=== PATIENT | male | born 1945 | race Caucasian/White ===

== ENCOUNTER 2019-01-25 11:06 | Inpatient (IN) ==
--- OUTSIDE RECORDS SUMMARY | 2019-01-25 11:09 | External Medical Summary | Continuity of Care Document ---
:1945 Author Name Ghassan Guerrero Address Unavailable Unavailable , Care Team Providers Name Role Phone Unavailable Unavailable Unavailable DOBERSTEIN Unavailable Unavailable Problems Active medical history not documented Allergies and Adverse Reactions Allergy history not documented Medications Medications not documented Procedures Procedures not documented Immunizations Immunizations not documented Plan of Treatment Planned Observations Planned Goals not documented Results No Known Results Results not documented
[2019-01-25] MEDS ORDERED: ALBUT/IPRATROP 3MG/0.5MG NEB 3 ML VIAL NEB ONE (11:21)
[2019-01-25] MEDS ORDERED: MAGNESIUM SULFATE / D5W 1 GM/100 ML BAG IV ONE (11:23)
[2019-01-25] MEDS ORDERED: methylPREDNISolone 125 MG/2 ML VIAL IV STA (11:23)
[2019-01-25] MEDS ORDERED: PIPERACILLIN/TAZOBACTAM 4.5 GM/120 ML BAG IV ONE (11:30)
[2019-01-25] MEDS ORDERED: PIPERACILL/TAZOBAC CONSULT ACTIVE PRN (11:30)
[2019-01-25] MEDS ORDERED: PIPERACILLIN/TAZOBACTAM 4.5 GM/120ML D5W ONE (11:30)
[2019-01-25] MEDS ORDERED: LEVOFLOXACIN/D5W 750 MG/150 ML BAG IV STA (11:30)
--- NOTE | 2019-01-25 11:36 | XRay Report ---
SINGLE VIEW CHEST CLINICAL HISTORY: Dyspnea. FINDINGS: An AP, portable, upright chest radiograph is compared to chest x-ray and chest CT dated 10/01. The examination is degraded by portable technique and patient rotation. A right subclavian ce ntral venous infusion port is new from previous. The heart is top normal for projection. The pulmonar y vasculature is noncongested. Emphysematous change is suspected. There is diffuse interstitial thick ening and nodularity, similar to previous. There is airspace consolidation the right mid to lower delilah g and a right pleural effusion. Consolidative change at the left lung base has largely cleared from . No large left-sided pleural effusion is identified. No pneumothorax is seen. The skeletal s tructures are osteopenic. The bony thorax is grossly intact. IMPRESSION: 1. There is dense airspace consolidation in the right mid to lower lung with a right pleural effusion . The appearance is typical for pneumonia. Clinical correlation will be required and radiographic fol low-up to resolution is recommended. 2. Chronic parenchymal changes are similar to previous. 3. A right subclavian central venous infusion port is new from previous. Electronically signed by: Michael Mcmillan M.D. 01/25/2019 11:35 AM
[2019-01-25] MEDS ORDERED: MoRPHine SULFATE 10 MG/ML CARP/VIAL ONE (11:40)
[2019-01-25] MEDS: MoRPHine SULFATE 2 MG/ML CARP IV PRN ×4 (11:40→12:07)
[2019-01-25] MEDS ORDERED: MoRPHine SULFATE 10 MG/ML CARP/VIAL IV STA (11:42)
[2019-01-25 11:44] LABS: Basophils # (auto) 0.01 K/uL (0-0.2); Basophils % (auto) 0.1 %; Eosinophils # (auto) 0.22 K/uL (0-0.5); Eosinophils % (auto) 2.5 %; Hematocrit (blood only) 25.8 % (42-52); Hemoglobin 9.2 g/dL (14.0-18.0); Immature Granulocytes # (auto) 0.04 K/uL (0.00-0.02); Immature Granulocytes % (auto) 0.5 %; Lymphocytes # (auto) 1.84 K/uL (1.2-3.4); Lymphocytes % (auto) 20.8 %; Mean Corpuscular Hgb Conc 35.7 g/dL (32-36); Mean Corpuscular Volume 92.5 fL (80-100); Mean Platelet Volume 9.6 fL (7.4-10.4); Monocytes # (auto) 1.74 K/uL (0.11-0.59); Monocytes % (auto) 19.7 %; Neutrophils % (auto) 56.4 %; Platelet Count 188 K/uL (130-400); RDW Coefficient of Variation 18.3 % (11.5-14.5); RDW Standard Deviation 60.4 fL (36.4-46.3); Red Blood Count 2.79 M/uL (4.7-6.1); White Blood Count 8.85 K/uL (4.8-10.8)
[2019-01-25 11:49] LABS: iSTAT Creatinine 0.6 mg/dl (0.6-1.3); iSTAT Hemoglobin 8.5 g/dl (14.0-18.0); iSTAT Ionized Calcium 1.14 mmol/l (1.12-1.32); iSTAT Potassium 4.5 mEq/L (3.3-5.0)
[2019-01-25 11:55] LABS: INR 1.1 (0.9-1.1); Partial Thromboplastin Ratio 1.2; Partial Thromboplastin Time 31.3 Seconds (21.0-31.0); Prothrombin Time 11.5 Seconds (9.0-12.0)
[2019-01-25 12:04] LABS: iSTAT Arterial Blood Gas HCO3 20 meg/L (19-24); iSTAT Arterial Blood Gas pCO2 35 mmHg (35-46); iSTAT Arterial Blood Gas pH 7.37 (7.35-7.45); iSTAT Arterial Blood Gas pO2 49 mmHg (80-95); iSTAT Carbon Dioxide 21 mEq/l (24-31)
[2019-01-25 12:07] LABS: Alanine Aminotransferase 65 U/L (12-78); Albumin Level 1.8 gm/dl (3.4-5.0); Aspartate Aminotransferase 41 U/L (15-37); Blood Urea Nitrogen 18 mg/dl (7-18); Carbon Dioxide 20 mmol/L (21-32); Chloride 101 mmol/L (98-107); Est GFR (African American) 101.6; Est GFR (Non-African American) 87.7; Glucose 156 mg/dl (70-99); Lipase 141 U/L (73-393); Potassium 4.4 mmol/L (3.5-5.1); Sodium 133 mmol/L (136-145)
[2019-01-25 12:12] LABS: Albumin Globulin Ratio 0.3 (0.9-2); Alkaline Phosphatase 380 U/L (45-117); Bilirubin,Total 0.6 mg/dl (0.2-1); Creatine Kinase 38 U/L (39-308); Creatine Kinase MB < 1.0 ng/ml (0.5-3.6); Globulin 6.2 gm/dl (2.5-4.0); Troponin I < 0.015 ng/ml (0-0.045)
[2019-01-25] MEDS: MoRPHine SULF/NSS 250 MG/250 ML BTL IV PRN ×2 (12:28→15:58)
[2019-01-25] MEDS ORDERED: LORazepam 0.5 MG/1 ML VIAL IV PRN ×2 (12:52→14:57)
[2019-01-25] MEDS ORDERED: MoRPHine SULFATE 2 MG/ML CARP IV PRN (12:52)
[2019-01-25] MEDS ORDERED: ATROPINE SULFATE 1% OP SOLN 5 ML BTL SL PRN ×2 (12:52→14:57)
[2019-01-25] MEDS ORDERED: GLYCOPYRROLATE 0.2 MG/ML VIAL IV PRN (12:52)
--- NOTE | 2019-01-25 12:59 | Palliative Care Consultation ---
Date of Consultation January 25, 2019 Assessment & Plan (1) Comfort measures only status: -73 year old male patient with terminal stage IV lung cancer who presented to the hospital today with c/o worsening shortness of breath. Patient does his doctoring with [facility] medical team in [place] as well as [facility] in [place]. Per notes printed from [employer] system, patient was diagnosed in November 2013 with adenocarcinoma of the lung, stage 4. He underwent palliative radiation to T6-L1 and to right hip, completed on 01/01/2014. Patient started chemotherapy after that was treated through May 2015. Chemo was stopped in 2015 due to disease progression. Patient underwent chemotherapy again from May 2016 to July 2018, was discontinued again due to progression of disease. Patient was also part of several clinical trials per documentation. In October 2018, CT scan showed disease progression yet again. Patient was started on chemotherapy in November 2018 with the goal of extending patient's life and controlling symptoms. Patient was to receive chemotherapy again on Monday, but became increasingly weak and SOB. Per patient's , he has been losing weight, about 20lb recently. CXR today in ED shows dense consolidation of right lung which could represent a pneumonia. Upon discussion with ED physician as well as admitting team, patient stated he did not want any treatment for the pneumonia such as abx, and only wanted comfort measures. Palliative care is consulted urgently to see patient in the ED. -Met with patient, his , and his son in room B1. Patient is awake, cachectic, frail and in respiratory distress. A morphine infusion was just started at 2mg/hr before I walked in. Patient had been given a total of 10mg IV morphine prior to that as well. -Patient oriented x4, on bipap. Not able to talk due to dyspnea. He was able to write and stated, "NO TREATMENT," when I asked about treating the pneumonia or any other reversible issues. Patient and family noted that he has end-stage, terminal disease. I also reviewed patient's POLST form that states, DNR, comfort measures only, no abx, and no artificial hydration/nutrition. Patient wrote, "stabilize me for comfort, then take the mask off," referring to the bipap. -Patient's oxygen saturation in 70s on bipap with 100% FiO2. Heart rate NSR in 90s. Lungs extremely diminished and coarse throughout. Respirations shallow. BP 119/76 at 1310. -Comfort measures only. NO abx, no lab draws, no medications unrelated to comfort. -Will continue morphine infusion, now up to 4mg/hr. Titrate by 2mg/hr Q15min PRN pain or SOB. -Add Morphine 2mg IV Q1h PRN pain or SOB. Patient and family counseled on the secondary side effects of morphine such as sedation and respiratory depression. -Atropine 1% oph soln 4 drops SL Q1h PRN secretions. -Lorazepam 0.5mg IV Q2h PRN anxiety/agitation. -Patient expected to in hours to days, likely hours at this point. Family aware and accepting. Support provided. -Patient to be admitted for comfort measures. (2) Non-small cell carcinoma of lung, stage 4: (3) Spine metastasis: (4) Shortness of breath: Supervising Physician Co-Signing Physician Notes Chart reviewed, patient seen and examined, patient's and only son at bedside. Patient's son is 18 years old and a freshman at [employer]. 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 Patient currently on a morphine drip for comfort, does arouse occasionally and able to answer simple questions, patient is weak with weak cough. Patient reports he is comfortable, currently on O2 via oxime mask. PE: Patient appears comfortable HEENT: EOMI, hearing within normal limits Respirations: Unlabored, increased shortness of breath with cough, diminished breath sounds, upper airway secretions CV: Tachycardic Abdomen: Not distended Neuro: Oriented when awake Agree with above note, assessment and plan as per JUDY Whitley Discussed patient's comfort, goals and end-of-life issues at length with and son at bedside. History of Present Illness History of Present Illness This 73 year old male patient with terminal stage IV lung cancer who presented to the hospital today with c/o worsening shortness of breath. Patient does his doctoring with [facility] medical team in [place] as well as [facility] in [place]. Per notes printed from [employer] system, patient was diagnosed in November 2013 with adenocarcinoma of the lung, stage 4. He underwent palliative radiation to T6-L1 and to right hip, completed on 01/01/2014. Patient started chemotherapy after that was treated through May 2015. Chemo was stopped in 2015 due to disease progression. Patient underwent chemotherapy again from May 2016 to July 2018, was discontinued again due to progression of disease. Patient was also part of several clinical trials per documentation. In October 2018, CT scan showed disease progression yet again. Patient was started on chemotherapy in November 2018 with the goal of extending patient's life and controlling symptoms. Patient was to receive chemotherapy again on Monday, but became increasingly weak and SOB. Per patient's , he has been losing weight, about 20lb recently. CXR today in ED shows dense consolidation of right lung which could represent a pneumonia. Upon discussion with ED physician as well as admitting team, patient stated he did not want any treatment for the pneumonia such as abx, and only wanted comfort measures. Palliative care is consulted urgently to see patient in the ED. Allergies Allergy/AdvReac Type Severity Reaction Status Date / Time No Known Allergies Allergy Unverified 01/25/19 12:41 Home Medications Home Medications Medication Instructions Recorded Confirmed Type benzonatate 100 mg PO TID PRN 01/25/19 01/25/19 History codeine-guaifenesin 5 ml PO Q4H PRN 01/25/19 01/25/19 History denosumab [Xgeva] 120 mg SUBCUT UD 01/25/19 01/25/19 History dexamethasone 8 mg PO UD 01/25/19 01/25/19 History docusate sodium 100 mg PO BID 01/25/19 01/25/19 History folic acid 1 mg PO DAILY 01/25/19 01/25/19 History ivabradine [Corlanor] 5 mg PO BID 01/25/19 01/25/19 History loratadine 10 mg PO DAILY 01/25/19 01/25/19 History megestrol 400 mg PO QAM 01/25/19 01/25/19 History olanzapine 5 mg PO HS 01/25/19 01/25/19 History prochlorperazine maleate 10 mg PO Q6H PRN 01/25/19 01/25/19 History [Compazine] ranitidine HCl 75 mg PO BID 01/25/19 01/25/19 History Patient History Medical History Spine metastasis (Chronic) Non-small cell carcinoma of lung, stage 4 (Chronic) Surgical History History of tonsillectomy and adenoidectomy (Chronic) Family History Mother Hypertension Social History Preferred Language: Greenlandic Communication Ability: Effective Setter Up Required: No Beliefs That Will Affect Care: None Current Living Situation: Spouse Other Information That Helps Us Care for You: No Feels Safe at Home: Yes Safety Concerns: Feels Safe At This Time Smoking Status: Never smoker Hx Alcohol Use: No Hx Substance Use: No Review of Systems Review of Systems: unable to obtain full ROS due to severe dyspnea. Patient denies pain and c/o severe SOB. No nausea. Physical Exam Constitutional: + ill appearing, + cachectic and + frail appearing ENMT: Ears: no hearing impairment Neck: normal visual inspection Respiratory: + respiratory distress, + labored breathing and + tachypneic Auscultation: + diminished lung sounds and + rhonchi Cardiovascular: RRR, no murmur, no edema Skin: no rashes, warm and dry Neurologic: moves all extremities and awake Psychiatric: Orientation: alert and oriented x 3 Results & Data Vital Signs (Past 12 Hours) Vital Signs Temp Pulse Pulse Resp BP Pulse Ox 01/25/19 12:40 100 H 25 H 136/82 91 01/25/19 12:30 102 H 36 H 124/79 77 L 01/25/19 12:20 100 H 35 H 133/76 81 L 01/25/19 12:12 105 H 38 H 85 L 01/25/19 12:10 101 H 36 H 140/79 82 L 01/25/19 12:00 101 H 40 H 152/95 H 81 L 01/25/19 11:50 100 H 38 H 160/97 H 82 L 01/25/19 11:40 98 H 39 H 172/98 H 82 L 01/25/19 11:33 131 H 37 H 161/108 H 85 L 01/25/19 11:30 100 H 40 H 84 L 01/25/19 11:25 106 H 40 H 85 L 01/25/19 11:23 106 H 30 H 83 L 01/25/19 11:20 106 H 24 01/25/19 11:19 103 H 8 L 01/25/19 11:13 36.6 C 102 H 32 H 144/84 H 70 L PG Care Time/CCT Prolonged Care Time Prolonged Care Time: Yes Total Prolonged Care Time: 30 Time Spent Midlevel 70 minutes with >50% of the time spent at bedside with patient and family discussing condition and GOC. Attending Spent 30 minutes at bedside in addition to this 70 minutes spent by JUDY Whitley for a total of 100 minutes with greater than 50% of this time spent at bedside assessing patient's comfort, discussing goals of care as well as end-of-life issues. Critical Care Time Prolonged Care Time Prolonged Care Time: Yes Total Prolonged Care Time: 30 100
--- NOTE | 2019-01-25 13:00 | History & Physical Report ---
Date of Service January 25, 2019 Assessment & Plan (1) Comfort measures only status: (2) Respiratory failure: (3) Pneumonia: (4) Non-small cell carcinoma of lung, stage 4: 73 year old male with history of stage IV metastatic non-small lung cancer who presents to the ED with shortness of breath and hemoptysis. Patient was diagnosed 5 years ago and has been through various rounds of chemo, radiation, and clinical trials. Upon arrival to the ED, patient is found to be in respiratory distress requiring BiPAP. CXR is suggestive of pneumonia. Upon further discussion with the patient, he is requesting no further treatment or work up and wishes to be comfort measures only. Case was discussed with palliative care, JUDY Whitley who evaluated the patient in the ED. Patient will be admitted with goal of comfort. Morphine drip has been initiated in the ED and will be continued. Other palliative/comfort medications have also been ordered. History of Present Illness Chief Complaint: shortness of breath, coughing up blood Primary Care Provider: Dirk Laws MD 73 year old male who presents to the ED with shortness of breath and hemoptysis. Patient has underlying stage 4 lung cancer, currently receiving chemo with last treatment being two weeks ago. Patient has had cold like symptoms for the past few weeks and developed a fever a few days ago. This morning shortness of breath was acutely worse and was having large amounts of hemoptysis. Patient then presented to the ED for further evaluation. Denies chest pain. No lightheadedness, dizziness, diaphoresis, or syncopal events. Appetite has been fair. Denies nausea, vomiting, diarrhea. No urinary symptoms. In the ED, patient is found to be is respiratory distress and BiPap was placed. CXR shows a right sided pneumonia. Despite BiPap, patient remains hypoxic. Per discussion with the patient and his , no further treatments or work up is wanted at this time. He would like to remain comfortable. He received neb treatment, IV mg+, IV zosyn, and IV solumedrol. He was also started on a morphine drip. Palliative care is evaluating the patient in the ED. Allergies Allergy/AdvReac Type Severity Reaction Status Date / Time No Known Allergies Allergy Unverified 01/25/19 12:41 Home Medications Home Medications Medication Instructions Recorded Confirmed Type benzonatate 100 mg PO TID PRN 01/25/19 01/25/19 History codeine-guaifenesin 5 ml PO Q4H PRN 01/25/19 01/25/19 History denosumab [Xgeva] 120 mg SUBCUT UD 01/25/19 01/25/19 History dexamethasone 8 mg PO UD 01/25/19 01/25/19 History docusate sodium 100 mg PO BID 01/25/19 01/25/19 History folic acid 1 mg PO DAILY 01/25/19 01/25/19 History ivabradine [Corlanor] 5 mg PO BID 01/25/19 01/25/19 History loratadine 10 mg PO DAILY 01/25/19 01/25/19 History megestrol 400 mg PO QAM 01/25/19 01/25/19 History olanzapine 5 mg PO HS 01/25/19 01/25/19 History prochlorperazine maleate 10 mg PO Q6H PRN 01/25/19 01/25/19 History [Compazine] ranitidine HCl 75 mg PO BID 01/25/19 01/25/19 History Past Med/Surg History Medical History Spine metastasis (Chronic) Non-small cell carcinoma of lung, stage 4 (Chronic) Surgical History History of tonsillectomy and adenoidectomy (Chronic) Family History Mother Hypertension Social History Preferred Language: Slovenian Communication Ability: Effective 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 Beliefs That Will Affect Care: None Current Living Situation: Spouse Other Information That Helps Us Care for You: No Feels Safe at Home: Yes Safety Concerns: Feels Safe At This Time Smoking Status: Never smoker Hx Alcohol Use: No Hx Substance Use: No Review of Systems Review of Systems: ROS per HPI, all other systems reviewed and negative Physical Exam Constitutional: + acute distress, + ill appearing and + cachectic Eyes: PERRL, conjunctivae normal, anicteric sclerae ENMT: external ear and nose normal, oropharynx normal Respiratory: + respiratory distress and + labored breathing; + not able to speak in complete sentence Auscultation: + diminished lung sounds and + wheezes (scattered, expiratory) on BiPap Cardiovascular: Rate/Rhythm: regular rhythm and + tachycardic Vessels: normal peripheral pulses Extremities: no edema Gastrointestinal (Abdomen): normal bowel sounds, soft, nontender, no hepatosplenomegaly Musculoskeletal: no cyanosis or clubbing, extremities motor strength 5/5 Skin: no rashes, warm and dry Neurologic: PERRL, EOMI, accommodation nl, no face palsy, no dysarthria Psychiatric: A+Ox3, euthymic affect Results & Data Vital Signs (Past 12 Hours) Vital Signs Temp Pulse Pulse Resp BP Pulse Ox 01/25/19 12:40 100 H 25 H 136/82 91 01/25/19 12:30 102 H 36 H 124/79 77 L 01/25/19 12:20 100 H 35 H 133/76 81 L 01/25/19 12:12 105 H 38 H 85 L 01/25/19 12:10 101 H 36 H 140/79 82 L 01/25/19 12:00 101 H 40 H 152/95 H 81 L 01/25/19 11:50 100 H 38 H 160/97 H 82 L 01/25/19 11:40 98 H 39 H 172/98 H 82 L 01/25/19 11:33 131 H 37 H 161/108 H 85 L 01/25/19 11:30 100 H 40 H 84 L 01/25/19 11:25 106 H 40 H 85 L 01/25/19 11:23 106 H 30 H 83 L 01/25/19 11:20 106 H 24 01/25/19 11:19 103 H 8 L 01/25/19 11:13 36.6 C 102 H 32 H 144/84 H 70 L Laboratory Results Short CBC 01/25/19 Range/Units 11:30 WBC 8.85 (4.8-10.8) K/uL Hgb 9.2 L (14.0-18.0) g/dL Hct 25.8 L (42-52) % Plt Count 188 (130-400) K/uL BMP 01/25/19 11:30 Sodium 133 L Potassium 4.4 Chloride 101 Carbon Dioxide 20 L BUN 18 Creatinine 0.85 Glucose 156 H Calcium 9.0 Cardiac Enzymes 01/25/19 Range/Units 11:30 Total Creatine Kinase 38 L (39-308) U/L CK-MB (CK-2) < 1.0 (0.5-3.6) ng/ml Troponin I < 0.015 (0-0.045) ng/ml Liver Function 01/25/19 Range/Units 11:30 Total Bilirubin 0.6 (0.2-1) mg/dl AST 41 H (15-37) U/L ALT 65 (12-78) U/L Alkaline Phosphatase 380 H (45-117) U/L Albumin 1.8 L (3.4-5.0) gm/dl Diagnostic Findings CXR IMPRESSION: 1. There is dense airspace consolidation in the right mid to lower lung with a right pleural effusion. The appearance is typical for pneumonia. Clinical correlation will be required and radiographic follow-up to resolution is recommended. 2. Chronic parenchymal changes are similar to previous. 3. A right subclavian central venous infusion port is new from previous. Code Status & VTE Plan Code Status Patient is a DNR as per my discussion with him and his who is at the bedside. VTE Prophylaxis Plan VTE Prophylaxis will be ordered: No Reason for no VTE drug order: Drug declined by patient Reason for no VTE mechanical prophylaxis: Refusal of treatmnt by pt Supervising Physician Co-Signing Physician Notes I saw this patient with the Nurse Practitioner, I participated in the history, physical, review of systems, and physical exam. I reviewed the medications with the patient and the Nurse Practitioner and helped reconcile the medications. I helped take a detailed family and social history as well. I formulated the assessment and plan personally with the Nurse Practitioner went over it with the patient. Physical Exam Gen-AAO x 3, Moderate resp distress, Afebrile, cachectic, labored, BIPAP Head-NCAT, EOMI, PERRLA, Anicteric Sclera, No Posterior Pharyngeal Erythema Neck-Supple, No JVD, No Thyromegaly, No Masses, No LAD, No Bruits Lungs-Clear to Auscultation Bilaterally, No Rales, No Rhonchi, No Wheezing, No Crepitus Chest-No S4, +S1, +S2, No S3, No Murmurs, No Rubs, No Gallops, No Ectopy Abdomen-Soft, Bowel Sounds Present, Non Tender, Non Distended, No Hepatomegaly, No Splenomegaly, No Palpable Masses, No Rebound, No Rigidity, No Guarding Musculoskeletal-Full Range of Motion Bilaterally, No CVAT Extremities-No Cyanosis, No Clubbing, No Edema Nuero-Cranial Nerves II-XII grossly intact, Motor WNL, DTRs WNL, Strength WNL, Non Focal Psych-Normal Mood
[2019-01-25 14:12] LABS: Influenza A virus by PCR Neg for Influ A (Neg); Influenza B virus by PCR Neg for Influ B (Neg)
[2019-01-25] MEDS ORDERED: ACETAMINOPHEN 325 MG TAB PO PRN (14:57)
--- NOTE | 2019-01-25 15:18 | Emergency Department Note ---
Entered by David Rodriguez acting as a scribe for Michael Marie MD History of Present Illness General Chief complaint: Illness Stated complaint: STAGE 4 LUNG CA - COUGHING UP BLOOD Time Seen by Provider: 01/25/19 11:17 Source: family History of Present Illness Provider complaint: Shortness of breath Onset (ago): minute(s) 45 Location: chest Severity: similar to prior episodes Pain Consistency: + constant and + other (Worsening) Relieved By: + none Associated symptoms: + cough and + other (Hemoptysis, Back pain); no fever/chills The patient is a 73 year old male who presents to the Emergency Room with complaints of constant shortness of breath that has been an issue for 3 weeks but became acutely worse less than an hour prior to arrival. The patient currently has stage 4 lung cancer and is undergoing chemotherapy every 3 weeks. The patient was originally diagnosed with the non-small cell carcinoma 5 years ago but per his , he was stable using drug treatments until about 2 months ago when the chemo treatments started. The patient has had 3 chemo sessions in total with his last treatment being 2 weeks ago. The patient presented to the ED today with 70% oxygen saturation on RA at triage. He also had multiple episodes of hemoptysis, however his notes he has a chronic cough from the cancer. The patient's also stated that he had flu like symptoms 5 weeks ago. The patient also has chronic back pain due to the cancer metastasizing to his spine. She adds that he currently has 3 fractured vertebrae. Due to the pain, he wears a back brace daily but notes about a week ago his pain became worse. The patient is not on any blood thinners. Home Medications Home Medications Medication Instructions Recorded Confirmed Type benzonatate 100 mg PO TID PRN 01/25/19 01/25/19 History codeine-guaifenesin 5 ml PO Q4H PRN 01/25/19 01/25/19 History denosumab [Xgeva] 120 mg SUBCUT UD 01/25/19 01/25/19 History dexamethasone 8 mg PO UD 01/25/19 01/25/19 History docusate sodium 100 mg PO BID 01/25/19 01/25/19 History folic acid 1 mg PO DAILY 01/25/19 01/25/19 History ivabradine [Corlanor] 5 mg PO BID 01/25/19 01/25/19 History loratadine 10 mg PO DAILY 01/25/19 01/25/19 History megestrol 400 mg PO QAM 01/25/19 01/25/19 History olanzapine 5 mg PO HS 01/25/19 01/25/19 History prochlorperazine maleate 10 mg PO Q6H PRN 01/25/19 01/25/19 History [Compazine] ranitidine HCl 75 mg PO BID 01/25/19 01/25/19 History Allergies Allergy/AdvReac Type Severity Reaction Status Date / Time No Known Allergies Allergy Unverified 01/25/19 12:41 Past Med/Surg History Medical History Spine metastasis (Chronic) Non-small cell carcinoma of lung, stage 4 (Chronic) Surgical History History of tonsillectomy and adenoidectomy (Chronic) Family History Mother Hypertension Social History Preferred Language: [place] Communication Ability: Effective 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 and A total of 10 systems reviewed and were otherwise negative Physical Exam Vital Signs Vital Signs - 24 hr 01/25/19 11:13 01/25/19 11:19 01/25/19 11:20 Temperature 36.6 C Temperature Source Oral Sepsis Recent Fever Within 48 Hours No Sepsis New/Unexplained Change in Mental Status No Sepsis Action Taken by Nursing No Action Required Pulse Rate 102 H 103 H 106 H Pulse Rate [Apical] Pulse Rate from SpO2 Sensor Respiratory Rate 32 H 8 L 24 Respiratory Effort / Characteristics Blood Pressure 144/84 H Blood Pressure Mean 104 Pulse Oximetry 70 L Oxygen Delivery Method Room Air Fraction of Inspired Oxygen 01/25/19 11:23 01/25/19 11:25 01/25/19 11:30 Temperature Temperature Source Sepsis Recent Fever Within 48 Hours Sepsis New/Unexplained Change in Mental Status Sepsis Action Taken by Nursing Pulse Rate 106 H 106 H 100 H Pulse Rate [Apical] Pulse Rate from SpO2 Sensor 106 H Respiratory Rate 30 H 40 H 40 H Respiratory Effort / Characteristics Accessory Muscle Use Labored Short of Breath Blood Pressure Blood Pressure Mean Pulse Oximetry 83 L 85 L 84 L Oxygen Delivery Method BiPAP Fraction of Inspired Oxygen 100 01/25/19 11:33 01/25/19 11:40 01/25/19 11:50 Temperature Temperature Source Sepsis Recent Fever Within 48 Hours Sepsis New/Unexplained Change in Mental Status Sepsis Action Taken by Nursing Pulse Rate 131 H 98 H 100 H Pulse Rate [Apical] Pulse Rate from SpO2 Sensor 105 H 99 H 98 H Respiratory Rate 37 H 39 H 38 H Respiratory Effort / Characteristics Blood Pressure 161/108 H 172/98 H 160/97 H Blood Pressure Mean 125 122 118 Pulse Oximetry 85 L 82 L 82 L Oxygen Delivery Method Fraction of Inspired Oxygen 01/25/19 12:00 01/25/19 12:10 01/25/19 12:12 Temperature Temperature Source Sepsis Recent Fever Within 48 Hours Sepsis New/Unexplained Change in Mental Status Sepsis Action Taken by Nursing Pulse Rate 101 H 101 H Pulse Rate [Apical] 105 H Pulse Rate from SpO2 Sensor 102 H 100 H Respiratory Rate 40 H 36 H 38 H Respiratory Effort / Characteristics Spontaneous Accessory Muscle Use Labored Short of Breath Blood Pressure 152/95 H 140/79 Blood Pressure Mean 114 99 Pulse Oximetry 81 L 82 L 85 L Oxygen Delivery Method BiPAP Fraction of Inspired Oxygen 100 01/25/19 12:20 01/25/19 12:30 Temperature Temperature Source Sepsis Recent Fever Within 48 Hours Sepsis New/Unexplained Change in Mental Status Sepsis Action Taken by Nursing Pulse Rate 100 H 102 H Pulse Rate [Apical] Pulse Rate from SpO2 Sensor 100 H 103 H Respiratory Rate 35 H 36 H Respiratory Effort / Characteristics Blood Pressure 133/76 124/79 Blood Pressure Mean 95 94 Pulse Oximetry 81 L 77 L Oxygen Delivery Method Fraction of Inspired Oxygen GENERAL: Awake, alert, cachectic in appearance. In acute distress. Modeled. HENT: Normocephalic, atraumatic. Oropharynx unremarkable. EYES: Normal conjunctiva. Sclera non-icteric. NECK: Supple. No nuchal rigidity. FROM. No masses. RESPIRATORY: Hypoxic, in respiratory distress. CARDIAC: Normal rate. Normal rhythm. No murmurs. No rubs. Extremities warm and well perfused. Pulses equal. No JVD. CHEST: Port in right chest wall. GI: Soft, non-distended. No tenderness to palpation. No rebound or guarding. No masses. RECTAL: Deferred. MUSCULOSKELETAL: Atraumatic. Chest examination reveals no tenderness. The back is symmetrical on inspection without obvious abnormality. There is no CVA tenderness to palpation. No joint edema. LOWER EXTREMITIES: Calves are equal size bilaterally and non-tender. No edema. No discoloration. NEURO: Normal sensorium. No sensory or motor deficits noted. Course 1117: Past medical records reviewed. The patient was evaluated in room B01, and a complete history and physical examination were performed. I stayed with the patient at bedside to observe any changes in his condition following the medication. After his condition did not seem to improve, I paged for the high speed warper tender. The patient is denying any further interventions to be done, including any intubation or CPR. 1153: I spoke to Dr. Ramirez [facility] Semiconductor Technician about the patient's case. 1200: I spoke to Teresa KIM about the patients case. The patient will be accepted by the [facility] service for further eval uation. Consultations Consultation #1: I spoke to Dr. Ramirez [facility] Semiconductor Technician about the patient's case. Time: 11:53 Consultation #2: I spoke to Teresa KIM about the patients case. The patient will be accepted by the [facility] service for further evaluation. Time: 12:00 Administered Medications Morphine Sulfate (Morphine Sulf/Nss) 250 mg in 250 mls @ 0 mls/hr IV .Q0M PRN; Protocol PRN Reason: Pain Stop: 02/08/19 12:29 Last Titration: 01/25/19 13:08 Dose: 6 mg/hr, 6 mls/hr Documented by: [id number] Titration: 01/25/19 12:49 Dose: 4 mg/hr, 4 mls/hr Documented by: [id number] Admin: 01/25/19 12:28 Dose: 2 mg/hr, 2 mls/hr Documented by: [id number] Cosigned by: [id number] Lorazepam (Ativan) 0.5 mg in 1 mls @ 1 mls/min IV Q2H PRN PRN Reason: Anxiety or agitation Stop: 02/24/19 12:51 Last Admin: 01/25/19 13:07 Dose: 1 mls/min Documented by: [id number] Discontinued Medications Albuterol (Duoneb) 12 ml NEB ONE ONE Stop: 01/25/19 11:22 Last Admin: 01/25/19 12:19 Dose: 12 ml Documented by: [id number] Magnesium Sulfate/Dextrose (Magnesium Sulfate / D5w) 1 gm in 100 mls @ 100 mls/hr IV ONE ONE Stop: 01/25/19 12:22 Last Infusion: 01/25/19 12:42 Dose: 0 mls/hr Documented by: [id number] Admin: 01/25/19 11:35 Dose: 100 mls/hr Documented by: [id number] Piperacillin Sod/Tazobactam Sod (Zosyn) 4.5 gm in 120 mls @ 240 mls/hr IV NOW ONE Stop: 01/25/19 11:59 Last Infusion: 01/25/19 12:29 Dose: 0 mls/hr Documented by: [id number] Admin: 01/25/19 11:48 Dose: 240 mls/hr Documented by: [id number] Levofloxacin/Dextrose (Levaquin/D5w) 750 mg in 150 mls @ 100 mls/hr IV NOW STA Stop: 01/25/19 12:59 Last Admin: 01/25/19 12:22 Dose: Not Given Documented by: [id number] Methylprednisolone (Solumedrol) 125 mg IV NOW STA Stop: 01/25/19 11:24 Last Admin: 01/25/19 11:35 Dose: 125 mg Documented by: [id number] Morphine Sulfate (Morphine Sulfate) 10 mg IV NOW STA Stop: 01/25/19 11:43 Last Admin: 01/25/19 11:51 Dose: Not Given Documented by: [id number] Morphine Sulfate (Morphine Sulfate) 2 mg IV NOW PRN PRN Reason: Pain Stop: 02/08/19 11:42 Last Admin: 01/25/19 12:07 Dose: 4 mg Documented by: [id number] Admin: 01/25/19 11:51 Dose: 2 mg Documented by: [id number] Admin: 01/25/19 11:45 Dose: 2 mg Documented by: [id number] Admin: 01/25/19 11:40 Dose: 2 mg Documented by: [id number] Medical Decision Making Differential Diagnosis Differential diagnoses includes but is not limited to pneumonia, bronchitis, COPD/Asthma exacerbation, pneumothorax, pulmonary embolism, congestive heart failure, acute coronary syndrome, amongst others. Medical Records Attestation: I reviewed the patient's medical records. Home Medications Current Medication List: was personally reviewed by me Laboratory Data Attestation: I reviewed the patient's lab results. Result diagrams: 01/25/19 11:30 01/25/19 11:30 Lab Results 01/25/19 01/25/19 01/25/19 Range/Units 11:30 11:30 11:30 WBC 8.85 (4.8-10.8) K/uL RBC 2.79 L (4.7-6.1) M/uL Hgb 9.2 L (14.0-18.0) g/dL POC Hgb (14.0-18.0) g/dl Hct 25.8 L (42-52) % POC Hct (42-52) % MCV 92.5 (80-100) fL MCH 33.0 (25-34) pg MCHC 35.7 (32-36) g/dL RDW Std Deviation 60.4 H (36.4-46.3) fL RDW Coeff of David 18.3 H (11.5-14.5) % Plt Count 188 (130-400) K/uL MPV 9.6 (7.4-10.4) fL Immature Gran % (Auto) 0.5 % Neut % (Auto) 56.4 % Lymph % (Auto) 20.8 % [place] % (Auto) 19.7 % Eos % (Auto) 2.5 % Baso % (Auto) 0.1 % Immature Gran # (Auto) 0.04 H (0.00-0.02) K/uL Neut # (Auto) 5.00 (1.4-6.5) K/uL Lymph # (Auto) 1.84 (1.2-3.4) K/uL Screven # (Auto) 1.74 H (0.11-0.59) K/uL Eos # (Auto) 0.22 (0-0.5) K/uL Baso # (Auto) 0.01 (0-0.2) K/uL PT 11.5 (9.0-12.0) Seconds INR 1.1 (0.9-1.1) APTT 31.3 H (21.0-31.0) Seconds PTT Ratio 1.2 POC pH (7.35-7.45) POC pCO2 (35-46) mmHg POC pO2 (80-95) mmHg POC HCO3 (19-24) joe/L POC Base Excess (-9-1.8) joe/L POC ABG O2 Sat (90-95) % POC Sodium (135-144) mEq/L Sodium 133 L (136-145) mmol/L POC Potassium (3.3-5.0) mEq/L Potassium 4.4 (3.5-5.1) mmol/L POC Chloride (101-112) mEq/L Chloride 101 (98-107) mmol/L Carbon Dioxide 20 L (21-32) mmol/L POC Total CO2 (24-31) mEq/l Anion Gap 12.0 H (3-11) POC Anion Gap (16-25) mmol/L POC BUN (7-18) mg/dl BUN 18 (7-18) mg/dl Creatinine 0.85 (0.6-1.4) mg/dl POC Creatinine (0.6-1.3) mg/dl Est Cr Clr Drug Dosing 62.0 ml/min Est GFR ( Amer) 101.6 Est GFR (Non-Af Amer) 87.7 BUN/Creatinine Ratio 21.0 H (10-20) Glucose 156 H (70-99) mg/dl POC Glucose (other) (70-99) mg/dl POC Lactic Acid Igor (0.90-1.70) mmol/L Calcium 9.0 (8.5-10.1) mg/dl POC Ioniz Calcium Mehdi (1.12-1.32) mmol/l Total Bilirubin 0.6 (0.2-1) mg/dl AST 41 H (15-37) U/L ALT 65 (12-78) U/L Alkaline Phosphatase 380 H (45-117) U/L Total Creatine Kinase 38 L (39-308) U/L CK-MB (CK-2) < 1.0 (0.5-3.6) ng/ml CK/CKMB % Calc TNP Troponin I < 0.015 (0-0.045) ng/ml Total Protein 8.0 (6.4-8.2) gm/dl Albumin 1.8 L (3.4-5.0) gm/dl Globulin 6.2 H (2.5-4.0) gm/dl Albumin/Globulin Ratio 0.3 L (0.9-2) Lipase 141 (73-393) U/L 01/25/19 01/25/19 01/25/19 Range/Units 11:30 11:33 11:49 WBC (4.8-10.8) K/uL RBC (4.7-6.1) M/uL Hgb (14.0-18.0) g/dL POC Hgb 8.5 L (14.0-18.0) g/dl Hct (42-52) % POC Hct 25 L (42-52) % MCV (80-100) fL MCH (25-34) pg MCHC (32-36) g/dL RDW Std Deviation (36.4-46.3) fL RDW Coeff of David (11.5-14.5) % Plt Count (130-400) K/uL MPV (7.4-10.4) fL Immature Gran % (Auto) % Neut % (Auto) % Lymph % (Auto) % Scre[place] % (Auto) % Eos % (Auto) % Baso % (Auto) % Immature Gran # (Auto) (0.00-0.02) K/uL Neut # (Auto) (1.4-6.5) K/uL Lymph # (Auto) (1.2-3.4) K/uL Screven # (Auto) (0.11-0.59) K/uL Eos # (Auto) (0-0.5) K/uL Baso # (Auto) (0-0.2) K/uL PT (9.0-12.0) Seconds INR (0.9-1.1) APTT (21.0-31.0) Seconds PTT Ratio POC pH 7.37 (7.35-7.45) POC pCO2 35 (35-46) mmHg POC pO2 49 L (80-95) mmHg POC HCO3 20 (19-24) joe/L POC Base Excess -5.0 (-9-1.8) joe/L POC ABG O2 Sat 84.0 L (90-95) % POC Sodium 133 L (135-144) mEq/L Sodium (136-145) mmol/L POC Potassium 4.5 (3.3-5.0) mEq/L Potassium (3.5-5.1) mmol/L POC Chloride 102 (101-112) mEq/L Chloride (98-107) mmol/L Carbon Dioxide (21-32) mmol/L POC Total CO2 22 L 21 L (24-31) mEq/l Anion Gap (3-11) POC Anion Gap 15.0 L (16-25) mmol/L POC BUN 18 (7-18) mg/dl BUN (7-18) mg/dl Creatinine (0.6-1.4) mg/dl POC Creatinine 0.6 (0.6-1.3) mg/dl Est Cr Clr Drug Dosing ml/min Est GFR ( Amer) Est GFR (Non-Af Amer) BUN/Creatinine Ratio (10-20) Glucose (70-99) mg/dl POC Glucose (other) 166 H (70-99) mg/dl POC Lactic Acid Igor 3.15 H (0.90-1.70) mmol/L Calcium (8.5-10.1) mg/dl POC Ioniz Calcium Mehdi 1.14 (1.12-1.32) mmol/l Total Bilirubin (0.2-1) mg/dl AST (15-37) U/L ALT (12-78) U/L Alkaline Phosphatase (45-117) U/L Total Creatine Kinase (39-308) U/L CK-MB (CK-2) (0.5-3.6) ng/ml CK/CKMB % Calc Troponin I (0-0.045) ng/ml Total Protein (6.4-8.2) gm/dl Albumin (3.4-5.0) gm/dl Globulin (2.5-4.0) gm/dl Albumin/Globulin Ratio (0.9-2) Lipase (73-393) U/L Imaging Data Radiologist's Impression: Radiology results as stated below per my review and the radiologist's interpretation: SINGLE VIEW CHEST CLINICAL HISTORY: Dyspnea. FINDINGS: An AP, portable, upright chest radiograph is compared to chest x-ray and chest CT dated 10/11/2018. The examination is degraded by portable technique and patient rotation. A right subclavian central venous infusion port is new from previous. The heart is top normal for projection. The pulmonary vasculature is noncongested. Emphysematous change is suspected. There is diffuse interstitial thickening and nodularity, similar to previous. There is airspace consolidation the right mid to lower lung and a right pleural effusion. Consolidative change at the left lung base has largely cleared from 10/11/2018. No large left-sided pleural effusion is identified. No pneumothorax is seen. The skeletal structures are osteopenic. The bony thorax is grossly intact. IMPRESSION: 1. There is dense airspace consolidation in the right mid to lower lung with a right pleural effusion. The appearance is typical for pneumonia. Clinical correlation will be required and radiographic follow-up to resolution is recommended. 2. Chronic parenchymal changes are similar to previous. 3. A right subclavian central venous infusion port is new from previous. Electronically signed by: Michael Mcmillan M.D. 01/25/2019 11:35 AM ECG Data Attestation: I personally reviewed and interpreted this ECG as follows: Indication: SOB/dyspnea Rate (beats per minute): 108 Rhythm: sinus tachycardia Findings: + other (Normal axis, QTC of 426) and + PVC; no ST depression and no ST elevation Blood Pressure Blood Pressure Findings: Elevated blood pressure Blood Pressure Disposition: Referred to patients primary care provider MDM Narrative This is a 73-year-old male who presents emergency department in acute distress. Upon arrival to the emergency department the patient is hypoxic and is rapidly breathing. He was immediately placed on BiPAP. I expressed my dire concerns about his condition. The patient notes that he has a pulse and he does not want any heroic measures performed including intubation or CPR. The patient was given Solu-Medrol as well as an hour-long breathing treatment magnesium Zosyn and Levaquin. His chest x-ray is concerning for a large pneumonia. Despite the medications the patient remained in the 80s and I am concerned without intubation he is going to deteriorate. I again expressed concern and he wishes to be placed on a morphine drip. I did discuss the case with ICU to discuss further interventions however they recommended a palliative care consult. I did discuss the case with the hospitalist as well as palliative care. Impression & Plan Respiratory failure, Pneumonia, Non-small cell carcinoma of lung, stage 4, Spine metastasis Critical Care Time Critical Care Time: Yes Total Critical Care Time: 50 I have personally spent greater than 50 minutes of critical care time in the direct management of this patient. This includes bedside care, interpretation of diagnostic studies, and testing, discussion with consultants, patient, and family members, and other required patient management activities. This 50 minutes is in excess of all separately billable procedures. Discharge Plan Visit Data *Final* Discharge Date/Time: 01/25/19 14:42 Chief Complaint: Illness Stated Complaint: STAGE 4 LUNG CA - COUGHING UP BLOOD ED Provider: Michael Marie Discharge Problem: Respiratory failure, Pneumonia, Non-small cell carcinoma of lung, stage 4, Spine metastasis Patient Disposition: Admitted As Inpatient Discharge Instructions Interventions: ED Discharge Assessment Last Done: 01/25/19 14:42 Discharge Problem: Respiratory failure Qualifiers: Chronicity: acute Respiratory failure complication: hypoxia Qualified Code(s): J96.01 - Acute respiratory failure with hypoxia Pneumonia Qualifiers: Pneumonia type: due to unspecified organism Laterality: unspecified laterality Lung location: unspecified part of lung Qualified Code(s): J18.9 - Pneumonia, unspecified organism Non-small cell carcinoma of lung, stage 4 Qualifiers: Laterality: unspecified laterality Qualified Code(s): C34.90 - Malignant neoplasm of unspecified part of unspecified bronchus or lung The scribe's documentation has been prepared under my direction and personally reviewed by me in its entirety. I confirm that the note above accurately reflects all work, treatment, procedures, and medical decision making performed by me.
[2019-01-26] MEDS ORDERED: HEPARIN 100 UNIT/ML 5ML FLUSH FLUSH PRN (00:55)
--- NOTE | 2019-01-26 05:32 | Death Summary ---
Date of Service January 26, 2019 Pronouncement Note Date and Time of Date of : 01/26/19 Time of : 05:20 Contributing Factors (1) Non-small cell carcinoma of lung, stage 4: (2) Comfort measures only status: (3) Spine metastasis: (4) Shortness of breath: Summary Additional details: Dr. Hawkins to accomplish discharge summary. Additional Data Confirmation of : no pulse, no respirations, no heart sounds and pupils fixed and dilated Family: at bedside Attending/PCP notified?: No Attending physician: Dawson Bradford MD
--- NOTE | 2019-01-26 11:39 | Discharge Summary ---
Date of Service January 26, 2019 Admission HPI Per Admitting Provider 73 year old male who presents to the ED with shortness of breath and hemoptysis. Patient has underlying stage 4 lung cancer, currently receiving chemo with last treatment being two weeks ago. Patient has had cold like symptoms for the past few weeks and developed a fever a few days ago. This morning shortness of breath was acutely worse and was having large amounts of hemoptysis. Patient then presented to the ED for further evaluation. Denies chest pain. No lightheadedness, dizziness, diaphoresis, or syncopal events. Appetite has been fair. Denies nausea, vomiting, diarrhea. No urinary symptoms. In the ED, patient is found to be is respiratory distress and BiPap was placed. CXR shows a right sided pneumonia. Despite BiPap, patient remains hypoxic. Per discussion with the patient and his , no further treatments or work up is wanted at this time. He would like to remain comfortable. He received neb treatment, IV mg+, IV zosyn, and IV solumedrol. He was also started on a morphine drip. Palliative care is evaluating the patient in the ED. Admission Exam Per Admitting Provider Constitutional: + acute distress, + ill appearing and + cachectic Eyes: PERRL, conjunctivae normal, anicteric sclerae ENMT: external ear and nose normal, oropharynx normal Respiratory: + respiratory distress and + labored breathing; + not able to speak in complete sentence Auscultation: + diminished lung sounds and + wheezes (scattered, expiratory) on BiPap Cardiovascular: Rate/Rhythm: regular rhythm and + tachycardic Vessels: norm al peripheral pulses Extremities: no edema Gastrointestinal (Abdomen): normal bowel sounds, soft, nontender, no hepatosplenomegaly Musculoskeletal: no cyanosis or clubbing, extremities motor strength 5/5 Skin: no rashes, warm and dry Neurologic: PERRL, EOMI, accommodation nl, no face palsy, no dysarthria Psychiatric: A+Ox3, euthymic affect Principal Diagnosis Metastatic Lung Cancer/Non Small Cell Respiratory Failure Pneumonia Discharge Exam NA Discharge Data Allergies Allergy/AdvReac Type Severity Reaction Status Date / Time No Known Allergies Allergy Unverified 01/25/19 12:41 Consultations 01/25/19 12:29 ED Decision to Admit Stat 01/25/19 14:57 Consult Palliative Care Stat Current Diagnoses Malignant neoplasm of unspecified part of unspecified bronchus or lung (01/25/19) Secondary malignant neoplasm of bone (01/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) Pneumonia, unspecified organism (01/25/19) Respiratory failure, unspecified, unspecified whether with hypoxia or hypercapnia (01/25/19) Shortness of breath (01/25/19) Encounter for palliative care (01/25/19) Allergies No Known Allergies Allergy (Unverified 01/25/19 12:41) Height/Weight/Isolation Height 6 ft 2 in Weight 55 kg Chemistry 01/25/19 11:30 Sodium 133 L Potassium 4.4 Chloride 101 Carbon Dioxide 20 L Anion Gap 12.0 H BUN 18 Creatinine 0.85 Glucose 156 H Microbiology 01/25/19 11:41 Blood Aerobic Blood Culture - Pending 01/25/19 11:41 Blood Anaerobic Blood Culture - Pending 01/25/19 11:30 Blood Aerobic Blood Culture - Pending 01/25/19 11:30 Blood Anaerobic Blood Culture - Pending Hospital Course (1) Non-small cell carcinoma of lung, stage 4: 73 year old male with history of stage IV metastatic non-small lung cancer who presents to the ED with shortness of breath and hemoptysis. Patient was diagnosed 5 years ago and has been through various rounds of chemo, radiation, and clinical trials. Upon arrival to the ED, patient is found to be in respiratory distress requiring BiPAP. CXR is suggestive of pneumonia. Upon further discussion with the patient, he is requesting no further treatment or work up and wishes to be comfort measures only. Case was discussed with palliative care, JUDY Whitley who evaluated the patient in the ED. Patient will be admitted with goal of comfort. Morphine drip was initiated in the ED and the patient this morning. (2) Comfort measures only status: (3) Spine metastasis: (4) Shortness of breath: Total Time Total Time Spent Total Time Spent (In Minutes): 40 mins Total Time Includes: Examination of the Patient, Discharge Planning, Medication Reconciliation and Communication With Other Providers Discharge Plan Discharge Items Patient Disposition: Discharge Diagnosis: Metastatic Lung Cancer/Non Small Cell Respiratory Failure Pneumonia Addtl Attending Provider Instructions: none Admission Data Admit Date/Time: 01/25/19 12:39 Other DC Date/Time DO NOT enter until pt leaves facility: 01/26/19 09:58
== END 2019-01-26 09:58 | disposition expired | DRG 180 ==
LOC: ED 11:06 → 2W 12:39 → SUATTDRO 12:39 → 2W 14:42